=== PATIENT | female | born 1990 | race Two or more races ===

== ENCOUNTER → 2018-04-16 | Emergency (ER) | payer OTHER ==
[~2018-04-16] VITALS: Ht 165.1 cm; Wt 52.2 kg
[~2018-04-16] MED LIST: KETO10TA2 PO; METOCLOPRAMIDE10 MG PO; PRENATAL TABLE1 EAC4 PO; PRENATE ELITE1 EAC2; TERBUTALINE SULF5 MG PO; TOBREX5 ML OP
== END | disposition home or self-care (01) ==
LOC: ER 00:10
DX: G43.909 Migraine, unspecified, not intractable, without status migrainosus (principal)

== ENCOUNTER 2022-08-25 08:04 | Outpatient (CLI) | payer OTHER | END 2022-08-25 09:17 | disposition home or self-care (01) | LOC: PRENATAL 08:04 | PROVIDERS: ATTEND Obstetrics & Gynecology Maternal & Fetal Medicine | DX: O35.3XX0 Maternal care for (suspected) damage to fetus from viral disease in mother, not applicable or unspecified (principal); O35.9XX0 Maternal care for (suspected) fetal abnormality and damage, unspecified, not applicable or unspecified; Z3A.23 23 weeks gestation of pregnancy ==

== ENCOUNTER 2022-10-27 09:06 | Outpatient (CLI) | payer OTHER | END 2022-10-27 17:39 | disposition home or self-care (01) | LOC: PRENATAL 09:06 | PROVIDERS: ATTEND Obstetrics & Gynecology Maternal & Fetal Medicine | DX: O26.849 Uterine size-date discrepancy, unspecified trimester (principal); O36.8199 Decreased fetal movements, unspecified trimester, other fetus; O35.9XX0 Maternal care for (suspected) fetal abnormality and damage, unspecified, not applicable or unspecified; O28.1 Abnormal biochemical finding on antenatal screening of mother; Z3A.32 32 weeks gestation of pregnancy ==

== ENCOUNTER 2025-05-31 07:24 | Outpatient (CLI) | payer OTHER | END 2025-05-31 07:28 | disposition home or self-care (01) | LOC: SONOGRAMA 07:24 | DX: D17.5 Benign lipomatous neoplasm of intra-abdominal organs (principal) ==